=== PATIENT | female | born 1960 | race Two or more races ===

== ENCOUNTER 2019-04-07 22:09 | Inpatient (IN) | payer OTHER ==
[~2019-04-07] VITALS: Ht 162.6 cm; Wt 57.5 kg
[2019-04-07] MEDS ORDERED: ACETAMINOPHEN 500 MG TABLET ONE (22:51)
[2019-04-07] MEDS ORDERED: ACETAMINOPHEN 500 MG TABLET PO ONE (23:00)
[2019-04-07] MEDS ORDERED: SODIUM CHLORIDE FLUSH 10ML SYR IVF ONE (23:00)
[2019-04-07] MEDS ORDERED: ALBUTEROL/IPRATROPIUM 2.5MG/0.5MG, 3 ML NPPB ONE (23:00)
[2019-04-07] MEDS ORDERED: SODIUM CHLORIDE 0.9% 1,000ML IVBOLUS ONE (23:00)
[2019-04-07 23:04] LABS: MEAN CORPUSCULAR HEMOGLOBIN 32.4 pg (27.0-34.8); MEAN CORPUSCULAR HGB CONC 33.3 g/dL (32.4-35.8); MEAN CORPUSCULAR VOLUME 97.4 fL (80-100); MEAN PLATELET VOLUME 8.5 fL (7.4-10.4); PLATELET COUNT 241 x10^3/uL (130-400); RED BLOOD COUNT 3.37 x10^6/uL (3.82-5.3); RED CELL DISTRIBUTION WIDTH 13.3 % (9.6-15.2)
[2019-04-07 23:15] LABS: ALANINE AMINOTRANSFERASE 101 U/L (12-78); ALBUMIN 2.6 g/dL (3.4-5.0); ANION GAP 8 mmol/L (5-15); CALCIUM 8.2 mg/dL (8.5-10.1); CHLORIDE 104 mmol/L (98-107); CREATININE 0.98 mg/dL (0.55-1.02)
[2019-04-07 23:18] LABS: ALKALINE PHOSPHATASE 115 U/L (45-117); BILIRUBIN,TOTAL 0.7 mg/dL (0.2-1.0); TOTAL PROTEIN 7.1 g/dL (6.4-8.2); TROPONIN I < 0.015 ng/mL (0.000-0.045)
[2019-04-07 23:23] LABS: RAPID INFLUENZA A Negative (Negative); RAPID INFLUENZA B Negative (Negative)
[2019-04-07 23:27] LABS: MD YES
[2019-04-07 23:28] LABS: BAND#(MANUAL) 2.62 x10^3/uL; BANDS%(MANUAL) 16 % (0-7); LYMPH#(MANUAL) 0.82 x10^3/uL (1-3.4); LYMPHS% (MANUAL) 5 % (22-44); METAMYELOCYTES# (MANUAL) 0.16 x10^3/uL (0-0); METAMYELOCYTES% (MANUAL) 1 % (0-1); MONOS#(MANUAL) 0.49 x10^3/uL (0.3-2.7); MONOS% (MANUAL) 3 % (2-9); SEGS% (MANUAL) 75 % (42-75)
[2019-04-07 23:29] LABS: <PLATELET ESTIMATE> ADEQUATE; <PLT MORPHOLOGY> NORMAL PLT MORPH; <RBC MORPHOLOGY> NORMAL
[2019-04-07] MEDS ORDERED: CEFTRIAXONE PMX 1GM/50ML 50 ML ONE (23:53)
[2019-04-08] MEDS ORDERED: SODIUM CHLORIDE 0.9% 1,000ML IVBOLUS ONE
[2019-04-08] MEDS ORDERED: AZITHROMYCIN 500 MG in SODIUM CHLORIDE 0.9% 250 ML IV ONE
[2019-04-08] MEDS ORDERED: CEFTRIAXONE PMX 1GM/50ML 50 ML IV ONE
[2019-04-08] MEDS ORDERED: OMNIPAQUE 350 MG/ML, 100ML BOTTLE ONE (00:19)
--- NOTE | 2019-04-08 00:30 | NUR ---
patient's antibiotics completed. tolerated well, no signs of transfusion reaction. will continue to monitor. patient's vital signs unchanged, patient is not symptomatic of blood pressure
--- NOTE | 2019-04-08 01:00 | NUR ---
Azithromycin started at 0100, charting will not allow change time.
[2019-04-08] MEDS: CEFTRIAXONE PMX 1GM/50ML 50 ML IV SCH (01:30)
[2019-04-08] MEDS ORDERED: ONDANSETRON 2MG/ML, 2ML IVPush PRN (01:30)
--- NOTE | 2019-04-08 01:59 | NUR ---
Spoke with RN chelly. Nurse expressed concerns about admitting patient to floor, RN has refused to take patient based on patient's current vital signs. MD Moon called, patient's status has been increasedd to ICU level of care. Family aware. will continue to monitor.
--- NOTE | 2019-04-08 02:36 | NUR ---
patient's family updated on plan of care. patient denies any needs at this time. will continue to monitor.
[2019-04-08 03:04] VITALS: BP 110/51
[2019-04-08] MEDS: AZITHROMYCIN 500 MG in SODIUM CHLORIDE 0.9% 250 ML IV SCH (03:20)
[2019-04-08] MEDS: SODIUM CHLORIDE 0.9% 1,000 ML IV SCH ×3 (03:21→17:40)
[2019-04-08] MEDS: ACETAMINOPHEN 325 MG TABLET PO PRN ×3 (05:25→22:54)
[2019-04-08 08:07] LABS: TROPONIN I < 0.015 ng/mL (0.000-0.045)
[2019-04-08 14:00] VITALS: BP 122/71
[2019-04-08 15:48] LABS: CLOSTRIDIUM DIFFICILE ANTIGEN NEGATIVE; CLOSTRIDIUM DIFFICILE TOXIN NEGATIVE (Negative)
[2019-04-08 17:35] VITALS: BP 100/64
[2019-04-08 20:08] VITALS: BP 104/61
[2019-04-09] MEDS: CEFTRIAXONE PMX 1GM/50ML 50 ML IV SCH (01:24)
[2019-04-09] MEDS: SODIUM CHLORIDE 0.9% 1,000 ML IV SCH ×3 (01:25→18:08)
[2019-04-09 01:27] VITALS: BP 115/63
[2019-04-09] MEDS: AZITHROMYCIN 500 MG in SODIUM CHLORIDE 0.9% 250 ML IV SCH (02:32)
[2019-04-09 05:22] LABS: BASOPHILS % (AUTO) 0 % (0-1); EOSINOPHILS # (AUTO) 0.02 x10^3/uL (0-0.4); EOSINOPHILS % (AUTO) 0 % (1-7); LYMPHOCYTES # (AUTO) 1.46 x10^3/uL (1-3.4); LYMPHOCYTES % (AUTO) 10 % (22-44); MD NO; MEAN CORPUSCULAR HEMOGLOBIN 32.1 pg (27.0-34.8); MEAN CORPUSCULAR HGB CONC 32.7 g/dL (32.4-35.8); MEAN CORPUSCULAR VOLUME 98.3 fL (80-100); MONOCYTES # (AUTO) 0.48 x10^3/uL (0.2-0.8); MONOCYTES % (AUTO) 3 % (2-9); NEUTROPHILS # (AUTO) 13.19 x10^3/uL (1.8-6.8); NEUTROPHILS % (AUTO) 87 % (42-75); PLATELET COUNT 257 x10^3/uL (130-400); RED BLOOD COUNT 3.12 x10^6/uL (3.82-5.3); RED CELL DISTRIBUTION WIDTH 13.9 % (9.6-15.2)
[2019-04-09 05:32] LABS: ANION GAP 6 mmol/L (5-15); CALCIUM 7.9 mg/dL (8.5-10.1); CHLORIDE 106 mmol/L (98-107)
[2019-04-09 05:34] LABS: CREATININE 0.65 mg/dL (0.55-1.02)
[2019-04-09 06:39] VITALS: BP 106/62
[2019-04-09] MEDS ORDERED: POTASSIUM CHLORIDE 20 MEQ TAB.ER.PRT PO ONE (07:30)
[2019-04-09 12:03] VITALS: BP 121/71
[2019-04-09 19:08] VITALS: BP 127/74
[2019-04-10 00:58] VITALS: BP 106/62
[2019-04-10] MEDS: CEFTRIAXONE PMX 1GM/50ML 50 ML IV SCH (01:19)
[2019-04-10] MEDS: SODIUM CHLORIDE 0.9% 1,000 ML IV SCH ×3 (01:21→19:21)
[2019-04-10] MEDS: AZITHROMYCIN 500 MG in SODIUM CHLORIDE 0.9% 250 ML IV SCH (02:44)
[2019-04-10 07:50] VITALS: BP 115/69
[2019-04-10 08:50] LABS: BASOPHILS # (AUTO) 0.02 x10^3/uL (0-0.1); BASOPHILS % (AUTO) 0 % (0-1); EOSINOPHILS # (AUTO) 0.03 x10^3/uL (0-0.4); EOSINOPHILS % (AUTO) 0 % (1-7); LYMPHOCYTES # (AUTO) 1.95 x10^3/uL (1-3.4); LYMPHOCYTES % (AUTO) 21 % (22-44); MD NO; MEAN CORPUSCULAR HEMOGLOBIN 31.8 pg (27.0-34.8); MEAN CORPUSCULAR HGB CONC 33.1 g/dL (32.4-35.8); MEAN CORPUSCULAR VOLUME 95.9 fL (80-100); MEAN PLATELET VOLUME 7.3 fL (7.4-10.4); MONOCYTES % (AUTO) 7 % (2-9); NEUTROPHILS # (AUTO) 6.64 x10^3/uL (1.8-6.8); NEUTROPHILS % (AUTO) 72 % (42-75); PLATELET COUNT 326 x10^3/uL (130-400); RED BLOOD COUNT 3.19 x10^6/uL (3.82-5.3); RED CELL DISTRIBUTION WIDTH 13.8 % (9.6-15.2)
[2019-04-10 08:53] LABS: ANION GAP 6 mmol/L (5-15); CALCIUM 8.6 mg/dL (8.5-10.1); CHLORIDE 106 mmol/L (98-107); CREATININE 0.59 mg/dL (0.55-1.02)
[2019-04-10] MEDS ORDERED: POTASSIUM CHLORIDE 20 MEQ TAB.ER.PRT PO ONE (14:30)
[2019-04-10] MEDS: ACETAMINOPHEN 325 MG TABLET PO PRN (14:57)
[2019-04-10 19:39] VITALS: BP 117/69
[2019-04-11] MEDS: CEFTRIAXONE PMX 1GM/50ML 50 ML IV SCH (01:17)
[2019-04-11 01:31] VITALS: BP 129/71
[2019-04-11] MEDS: AZITHROMYCIN 500 MG in SODIUM CHLORIDE 0.9% 250 ML IV SCH (01:59)
[2019-04-11] MEDS: ACETAMINOPHEN 325 MG TABLET PO PRN ×2 (04:03→17:45)
[2019-04-11] MEDS: SODIUM CHLORIDE 0.9% 1,000 ML IV SCH ×2 (04:04→18:30)
[2019-04-11 07:19] VITALS: BP 122/70
[2019-04-11 07:37] LABS: BASOPHILS # (AUTO) 0.02 x10^3/uL (0-0.1); BASOPHILS % (AUTO) 0 % (0-1); EOSINOPHILS # (AUTO) 0.08 x10^3/uL (0-0.4); EOSINOPHILS % (AUTO) 1 % (1-7); LYMPHOCYTES # (AUTO) 1.48 x10^3/uL (1-3.4); LYMPHOCYTES % (AUTO) 25 % (22-44); MD NO; MEAN CORPUSCULAR HEMOGLOBIN 32.3 pg (27.0-34.8); MEAN CORPUSCULAR HGB CONC 33.6 g/dL (32.4-35.8); MEAN CORPUSCULAR VOLUME 96.3 fL (80-100); MEAN PLATELET VOLUME 7.3 fL (7.4-10.4); MONOCYTES # (AUTO) 0.53 x10^3/uL (0.2-0.8); MONOCYTES % (AUTO) 9 % (2-9); NEUTROPHILS # (AUTO) 3.91 x10^3/uL (1.8-6.8); NEUTROPHILS % (AUTO) 65 % (42-75); PLATELET COUNT 396 x10^3/uL (130-400); RED BLOOD COUNT 3.23 x10^6/uL (3.82-5.3); RED CELL DISTRIBUTION WIDTH 13.7 % (9.6-15.2)
[2019-04-11 07:45] LABS: ANION GAP 6 mmol/L (5-15); CALCIUM 8.4 mg/dL (8.5-10.1); CHLORIDE 106 mmol/L (98-107); CREATININE 0.57 mg/dL (0.55-1.02)
[2019-04-11 13:30] VITALS: BP 115/62
[2019-04-11] MEDS ORDERED: POTASSIUM CHLORIDE 20 MEQ TAB.ER.PRT PO ONE ×2 (14:30→16:30)
[2019-04-11] MEDS: ENOXAPARIN 40 MG/0.4 ML SQ SCH (15:14)
[2019-04-11 19:37] VITALS: BP 112/70
[2019-04-12 01:03] VITALS: BP 118/68
[2019-04-12] MEDS: CEFTRIAXONE PMX 1GM/50ML 50 ML IV SCH (01:30)
[2019-04-12] MEDS: AZITHROMYCIN 500 MG in SODIUM CHLORIDE 0.9% 250 ML IV SCH (02:47)
[2019-04-12] MEDS: SODIUM CHLORIDE 0.9% 1,000 ML IV SCH (02:51)
[2019-04-12 06:49] VITALS: BP 130/83
[2019-04-12 08:50] LABS: ANION GAP 4 mmol/L (5-15); CALCIUM 9.1 mg/dL (8.5-10.1); CHLORIDE 107 mmol/L (98-107); CREATININE 0.69 mg/dL (0.55-1.02)
[2019-04-12 08:52] LABS: BASOPHILS # (AUTO) 0.02 x10^3/uL (0-0.1); BASOPHILS % (AUTO) 0 % (0-1); EOSINOPHILS # (AUTO) 0.11 x10^3/uL (0-0.4); EOSINOPHILS % (AUTO) 1 % (1-7); LYMPHOCYTES # (AUTO) 1.43 x10^3/uL (1-3.4); LYMPHOCYTES % (AUTO) 18 % (22-44); MD NO; MEAN CORPUSCULAR HEMOGLOBIN 31.9 pg (27.0-34.8); MEAN CORPUSCULAR HGB CONC 33.4 g/dL (32.4-35.8); MEAN CORPUSCULAR VOLUME 95.4 fL (80-100); MEAN PLATELET VOLUME 7.2 fL (7.4-10.4); MONOCYTES # (AUTO) 0.51 x10^3/uL (0.2-0.8); MONOCYTES % (AUTO) 7 % (2-9); NEUTROPHILS # (AUTO) 5.81 x10^3/uL (1.8-6.8); NEUTROPHILS % (AUTO) 74 % (42-75); PLATELET COUNT 520 x10^3/uL (130-400); RED BLOOD COUNT 3.46 x10^6/uL (3.82-5.3); RED CELL DISTRIBUTION WIDTH 13.6 % (9.6-15.2)
[2019-04-12 14:21] VITALS: BP 103/65
[2019-04-12] MEDS: ENOXAPARIN 40 MG/0.4 ML SQ SCH (14:37)
[2019-04-12 19:21] VITALS: BP 126/75
[2019-04-12] MEDS: ACETAMINOPHEN 325 MG TABLET PO PRN (23:06)
[2019-04-13 00:50] VITALS: BP 122/70
[2019-04-13] MEDS: CEFTRIAXONE PMX 1GM/50ML 50 ML IV SCH (01:42)
[2019-04-13] MEDS: AZITHROMYCIN 500 MG in SODIUM CHLORIDE 0.9% 250 ML IV SCH (02:33)
[2019-04-13 05:35] LABS: BASOPHILS # (AUTO) 0.02 x10^3/uL (0-0.1); BASOPHILS % (AUTO) 0 % (0-1); EOSINOPHILS # (AUTO) 0.15 x10^3/uL (0-0.4); EOSINOPHILS % (AUTO) 2 % (1-7); LYMPHOCYTES # (AUTO) 1.82 x10^3/uL (1-3.4); LYMPHOCYTES % (AUTO) 24 % (22-44); MD NO; MEAN CORPUSCULAR HEMOGLOBIN 31.7 pg (27.0-34.8); MEAN CORPUSCULAR HGB CONC 32.9 g/dL (32.4-35.8); MEAN CORPUSCULAR VOLUME 96.3 fL (80-100); MEAN PLATELET VOLUME 7.3 fL (7.4-10.4); MONOCYTES # (AUTO) 0.58 x10^3/uL (0.2-0.8); MONOCYTES % (AUTO) 8 % (2-9); NEUTROPHILS # (AUTO) 5.18 x10^3/uL (1.8-6.8); NEUTROPHILS % (AUTO) 67 % (42-75); PLATELET COUNT 576 x10^3/uL (130-400); RED BLOOD COUNT 3.43 x10^6/uL (3.82-5.3); RED CELL DISTRIBUTION WIDTH 13.9 % (9.6-15.2)
[2019-04-13 05:40] LABS: ANION GAP 5 mmol/L (5-15); CALCIUM 8.9 mg/dL (8.5-10.1); CHLORIDE 107 mmol/L (98-107)
[2019-04-13 05:43] LABS: CREATININE 0.71 mg/dL (0.55-1.02)
[2019-04-13 07:27] VITALS: BP 112/65
[2019-04-13] MEDS: ENOXAPARIN 40 MG/0.4 ML SQ SCH (14:02)
== END 2019-04-13 14:50 | disposition home or self-care (01) | DRG 871 ==
LOC: ED 23:32 → EDIP 04-08 00:55 → CCU 04-08 02:56 → 3N 04-08 10:07 → DCLOUNGE 04-13 14:37
PROVIDERS: ADMIT Family Medicine; ATTEND Hospitalist
DX: A41.9 Sepsis, unspecified organism (principal); J15.9 Unspecified bacterial pneumonia; J96.01 Acute respiratory failure with hypoxia; R65.21 Severe sepsis with septic shock; E86.0 Dehydration; E87.6 Hypokalemia; R73.9 Hyperglycemia, unspecified; Z23 Encounter for immunization
CPT/HCPCS: 36415; 84145; 87400; 99291; J7620; 71045; 71046; 71275; 80048; 80053; 83605; 84484; 85025; 85379; 87040; 87081; 87324; 93005; 94640; G0378; J0456; J0696; J1650; Q9967; J7030; J7050